=== PATIENT | female | born 1990 | race Caucasian/White ===

== ENCOUNTER 2018-06-26 08:26 | Emergency (ER) | payer OTHER ==
[~2018-06-26] VITALS: Ht 160 cm; Wt 63.5 kg
[2018-06-26 08:49] VITALS: BP 125/85
[2018-06-26] MEDS ORDERED: cefTRIAXone SOD 1,000 MG VL IM ONE (09:00)
== END 2018-06-26 09:34 | disposition home or self-care (01) ==
LOC: ER 08:26
DX: J20.9 Acute bronchitis, unspecified (principal); J03.90 Acute tonsillitis, unspecified; F17.210 Nicotine dependence, cigarettes, uncomplicated
CPT/HCPCS: 71046; 96372; 99283; J0696

== ENCOUNTER 2018-07-25 08:26 | Emergency (ER) | payer SELFPAY ==
[~2018-07-25] VITALS: Ht 160 cm; Wt 62.6 kg
[2018-07-25 08:30] VITALS: BP 151/79
== END 2018-07-25 09:14 | disposition home or self-care (01) ==
LOC: ER 08:32
DX: J03.90 Acute tonsillitis, unspecified (principal); F17.210 Nicotine dependence, cigarettes, uncomplicated